=== PATIENT | male | born 1960 | race Caucasian/White ===

== ENCOUNTER 2019-07-29 13:02 | Emergency (ER) | payer OTHER ==
[~2019-07-29] VITALS: Ht 180.3 cm; Wt 70.3 kg
[~2019-07-29 13:02] MED LIST: NORCO 5-325 TA1 EACH PO
--- OUTSIDE RECORDS SUMMARY | 2019-07-29 13:06 | XMS ---
PreManage Notification: SUDEEP RODRIGUEZ [employer] Consultant Events No recent Security Events currently on file CRITERIA MET - [facility] - 2 Visits in 30 Days CARE PROVIDERS NATALIE SALDAÑA Primary Care Current PHONE: [phone] Marlen has no Care Guidelines for this patient. E.Ranjan VISIT COUNT (12 MO.) 2 [facility] Gloria Barragan 1 [facility] TOTAL 3 NOTE: Visits indicate total known visits. ED/UCC VISIT TRACKING (12 MO.) 07/29/2019 13:04 [facility] TYPE: Emergency COMPLAINT: - RT ARM NUMBNESS[facility]JURY [facility] DIAGNOSES: - Unspecified injury of right shoulder and upper arm, sequela - Radiculopathy, site unspecified - Shoulder Pain - Arm pain - Arm pain/numbness [facility]2019 17[facility] DIAGNOSES: - Strain of musc/tend the rotator cuff of right shoulder, init - Unsp inj musc/tend the rotator cuff of r shoulder, init - Shoulder Pain - bi-lat shoulder pain - Fall 01/04/2019 09:11 [facility] TYPE: Urgent Care DIAGNOSES: - Shoulder Pain - Pain in left shoulder - Strain unsp musc/fasc/tend at shldr/up arm, unsp arm, init - Civilian activity done for income or pay - Pain in right shoulder 11/02/2018 11:07 [facility] Urgent Care [facility] TYPE: Urgent Care DIAGNOSES: - Civilian activity done for income or pay - Strain of musc/fasc/tend at shldr/up arm, right arm, init - Bicipital tendinitis, right shoulder - Hand Injury - 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
[2019-07-29] MEDS ORDERED: HYDROCODON-ACE1 EA10 PO (13:26)
[2019-07-29] MEDS ORDERED: METHYLPREDNISOLO4 M1 PO (13:26)
== END 2019-07-29 15:06 | disposition home or self-care (01) ==
LOC: ED 13:02
DX: R20.2 Paresthesia of skin (principal); M79.601 Pain in right arm; Z88.0 Allergy status to penicillin; Z88.8 Allergy status to other drugs, medicaments and biological substances; Z79.899 Other long term (current) drug therapy
CPT/HCPCS: 99283